=== PATIENT | male | born 1945 | race Caucasian/White ===

== ENCOUNTER → 2016-07-09 | Outpatient (CLI) | payer MEDICARE, MEDICAID ==
[~2016-07-09] MED LIST: ACET-784 PO; AMIN30LI28 PO; AMLO-511 PO; ASCO500 PO; AUD NEB; CINA30 PO; FAMO20 PO; FOLI1 PO; FOLI1TAB61 PO; GABA-529 PO; HYDR-3965 PO; LEVO50 PO; LOPE2 PO; METO50 PO; NIAC50TA4 PO; PROZ10 PO; SENN1TAB77 PO; SEVEC800 PO; VITAD1000 PO
[2016-07-09 08:05] VITALS: BP 144/70
== END | disposition home or self-care (01) ==
LOC: HBOWC 08:33
PROVIDERS: ATTEND Emergency Medicine
DX: E11.621 Type 2 diabetes mellitus with foot ulcer (principal); L97.511 Non-pressure chronic ulcer of other part of right foot limited to breakdown of skin; E11.51 Type 2 diabetes mellitus with diabetic peripheral angiopathy without gangrene; E11.22 Type 2 diabetes mellitus with diabetic chronic kidney disease; N18.6 End stage renal disease; G82.50 Quadriplegia, unspecified; B35.1 Tinea unguium; Z99.2 Dependence on renal dialysis
CPT/HCPCS: 97597

== ENCOUNTER → 2016-07-23 | Outpatient (CLI) | payer MEDICARE, MEDICAID ==
[2016-07-23 10:14] VITALS: BP 95/47
== END | disposition home or self-care (01) ==
LOC: HBOWC 08:47
PROVIDERS: ATTEND Emergency Medicine
DX: E11.621 Type 2 diabetes mellitus with foot ulcer (principal); L97.511 Non-pressure chronic ulcer of other part of right foot limited to breakdown of skin; E11.22 Type 2 diabetes mellitus with diabetic chronic kidney disease; N18.6 End stage renal disease; E11.51 Type 2 diabetes mellitus with diabetic peripheral angiopathy without gangrene; G82.50 Quadriplegia, unspecified; M62.50 Muscle wasting and atrophy, not elsewhere classified, unspecified site; Z99.2 Dependence on renal dialysis

== ENCOUNTER → 2021-01-16 | Outpatient (CLI) | payer MEDICARE, MEDICAID ==
[~2021-01-16] MED LIST changes: -AMIN30LI28 PO; +AMLO-257 PO; -AMLO-511 PO; +ASPI-1450 PO; +CHOL-35 PO; -FAMO20 PO; +FLUO10CA24 PO; +FOLI-130 PO; -FOLI1 PO; +GABA-1216 PO; -GABA-529 PO; +GUAIF600 PO; -HYDR-3965 PO; -LOPE2 PO; +NIAC100T35 PO; -NIAC50TA4 PO; +PANT-31 PO; -PROZ10 PO; -SENN1TAB77 PO; +SEVE800T17 PO; -SEVEC800 PO; -VITAD1000 PO
== END | disposition home or self-care (01) ==
LOC: RADPV 11:00
PROVIDERS: ATTEND Internal Medicine Cardiovascular Disease
DX: I08.0 Rheumatic disorders of both mitral and aortic valves (principal); I31.3 Pericardial effusion (noninflammatory)
CPT/HCPCS: 93306